=== PATIENT | female | born 1990 | race Asian ===

== ENCOUNTER 2025-03-07 23:13 | Inpatient (IN) | payer OTHER, SELFPAY ==
[2025-03-07 20:19] VITALS: BP 120/76
--- NOTE | 2025-03-07 20:51 | ED.GENMED ---
History of Present Illness
<Tarsha Torres PA-C - Last Filed: 03/08/25 01:44>
General
Chief Complaint: Abdominal Symptoms
Source: patient
Exam Limitations: none
Time Seen by Provider: 03/07/25 20:28
Nursing documentation reviewed up to this point in time: agreed with
History of Present Illness
History of Present Illness:
Patient is a 34-year-old female who presents to the emergency department for evaluation of upper abdominal pain. Patient states that symptoms started 2 days ago after eating fish. She reports upper abdominal pain associated with nausea. Symptoms
initially resolved 2 days ago although after eating earlier this evening pain returned and has been more intense. She describes it as a 'pinching' with radiation into her mid back. She feels nauseous although has not had any episodes of vomiting.
She denies any fever or chills. No dysuria, hematuria, or changes in bowel habits. She denies any chest pain or difficulty breathing however does feel discomfort with deep inspiration.
No history of abdominal surgeries.
Review of Systems
<Tarsha Torres PA-C - Last Filed: 03/08/25 01:44>
Review of Systems
Allergies reviewed?: Yes
All Other Systems: ROS reviewed and negative except as documented in HPI and ROS
Phy Exam
<Tarsha Torres PA-C - Last Filed: 03/08/25 01:44>
Physical Exam
Physical Exam:
Vitals: Patient's vital signs are stable. Afebrile
General: Patient is uncomfortable appearing.
Skin: Warm and dry, no rashes or lesions
Head: Normocephalic, atraumatic
Eyes: Sclera nonicteric.
Throat: Protecting airway
Neck: Normal ROM, no cervical spine tenderness, no meningismus
Cardiac: Regular rate and rhythm, no murmurs.
Pulm: Normal respiratory effort. Lungs clear
Abdomen: Abdomen soft. Moderate tenderness in epigastric region and right upper quadrant. No rebound or guarding. Negative Delarosa sign.
Extremities: No evidence of cyanosis or edema
Neuro: AAOx3. Grossly intact.
Psychiatric: Normal affect.
Course
<Tarsha Torres PA-C - Last Filed: 03/08/25 01:44>
Orders/Labs/Results
Orders:
Orders
03/07/25 20:51
Ketorolac [Toradol] 15 mg IV NOW STA
Ondansetron Injectable [Zofran] 4 mg IV NOW STA
Test Result ONCE
US Abdomen Complete/Upper Urgent
Comment:
Reason For Exam: Epigastric pain
03/07/25 20:53
0.9% Sodium Chloride 1000 ml [Nss] 1,000 ml IV BOLUS
03/07/25 20:57
Electrocardiogram (*1) Urgent
Reason for Study: Abdominal Pain
EKG- Treatment ONCE
03/07/25 21:04
Complete Blood Count/With Diff Urgent
Comprehensive Metabolic Panel Urgent
HCG, Serum Qualitative Screen Urgent
Lipase Urgent
03/07/25 22:56
Admit/Transfer Patient As Directed
Co-Sign Provider:
Level of Care: Inpatient admission
Assign to:: Medical/Surgical
Physician / Group: htay
Diagnosis: acute GS pancreattiis
Reason for Hospitalization: acute GS pancreatitis
Expected length of stay greater than two midnights?: Yes
ELOS- Estimated Length of Stay in days: 3
I certify the patient meets the requirements for IP care: Yes
03/07/25 22:57
Code Status As Directed
Resuscitation Status: Full Code
03/08/25 00:56
Bisacodyl [Dulcolax] 10 mg RECTAL [id number] PRN
Docusate W/Senna [Senokot-S] 1 tablet PO BIDPRN PRN
HYDROmorphone [Dilaudid] 0.5 mg IV Q4HPRN PRN
Ketorolac [Toradol] 10 mg IV Q6HPRN PRN
Lactated Ringers [Lr] 1,000 ml IV 200 mls/hr
Ondansetron Injectable [Zofran] 4 mg IV Q6HPRN PRN
Polyethylene Glycol Powder [Miralax] 17 grams PO DAILYPRN PRN
03/08/25 00:56
Consult Notification Routine
Specialty to Notify: Gastroenterology
GASTROINTESTINAL CONSULT Routine
Consulting Provider: Jose Coawn
Was physician already notified: No
Reason for consult: acute GS pancreattiis
Activity As Directed
Activity Level: With Assistance
Vital Signs As Directed
Frequency: Per unit guidelines
DX Deep Vein Thrombosis Video Routine
03/08/25 Breakfast
NPO
Allow oral meds: Yes
Allow clear liquids: Sips of Clears
NPO with Ice Chips: No
Complete Blood Count/No Diff IN AM
Comprehensive Metabolic Panel IN AM
Lipase IN AM
03/08/25 08:00
Heparin 5,000 units SC Q12
Abnormal Lab Results
03/07/25
21:04
RBC 4.18 L 10^6/uL
(4.20-5.40)
Absolute Monos (auto) 0.8 H 10^3/uL
(0.1-0.6)
Creatinine 0.5 L mg/dL
(0.6-1.0)
Glucose 102 H mg/dl
(70-99)
AST 152 H U/L
(14-36)
ALT 82 H U/L
(0-35)
Lipase > 4000 H* U/L
(23-300)
03/07/25 21:04
03/07/25 21:04
Vital Signs
Initial and Last Documented VS:
Initial Vital Signs
Temp Pulse Resp BP Pulse Ox
98.0 F 96 20 120/76 99
03/07/25 20:19 03/07/25 20:19 03/07/25 20:19 03/07/25 20:19 03/07/25 20:19
Last Documented Vital Signs
Temp Pulse Resp BP Pulse Ox
97.8 F 85 16 122/80 98
03/08/25 01:04 03/08/25 01:04 03/08/25 01:04 03/08/25 01:04 03/08/25 01:04
<Trey Agrawal MD - Last Filed: 03/07/25 22:49>
Orders/Labs/Results
Orders:
Orders
03/07/25 20:51
Ketorolac [Toradol] 15 mg IV NOW STA
Ondansetron Injectable [Zofran] 4 mg IV NOW STA
Test Result ONCE
US Abdomen Complete/Upper Urgent
Comment:
Reason For Exam: Epigastric pain
03/07/25 20:53
0.9% Sodium Chloride 1000 ml [Nss] 1,000 ml IV BOLUS
03/07/25 20:57
Electrocardiogram (*1) Urgent
Reason for Study: Abdominal Pain
EKG- Treatment ONCE
03/07/25 21:04
Complete Blood Count/With Diff Urgent
Comprehensive Metabolic Panel Urgent
HCG, Serum Qualitative Screen Urgent
Lipase Urgent
03/07/25 22:56
Admit/Transfer Patient As Directed
Co-Sign Provider:
Level of Care: Inpatient admission
Assign to:: Medical/Surgical
Physician / Group: htay
Diagnosis: acute GS pancreattiis
Reason for Hospitalization: acute GS pancreatitis
Expected length of stay greater than two midnights?: Yes
ELOS- Estimated Length of Stay in days: 3
I certify the patient meets the requirements for IP care: Yes
03/07/25 22:57
Code Status As Directed
Resuscitation Status: Full Code
03/08/25 00:56
Bisacodyl [Dulcolax] 10 mg RECTAL [id number] PRN
Docusate W/Senna [Senokot-S] 1 tablet PO BIDPRN PRN
HYDROmorphone [Dilaudid] 0.5 mg IV Q4HPRN PRN
Ketorolac [Toradol] 10 mg IV Q6HPRN PRN
Lactated Ringers [Lr] 1,000 ml IV 200 mls/hr
Ondansetron Injectable [Zofran] 4 mg IV Q6HPRN PRN
Polyethylene Glycol Powder [Miralax] 17 grams PO DAILYPRN PRN
03/08/25 00:56
Consult Notification Routine
Specialty to Notify: Gastroenterology
GASTROINTESTINAL CONSULT Routine
Consulting Provider: Jose Cowan
Was physician already notified: No
Reason for consult: acute GS pancreattiis
Activity As Directed
Activity Level: With Assistance
Vital Signs As Directed
Frequency: Per unit guidelines
DX Deep Vein Thrombosis Video Routine
03/08/25 Breakfast
NPO
Allow oral meds: Yes
Allow clear liquids: Sips of Clears
NPO with Ice Chips: No
Complete Blood Count/No Diff IN AM
Comprehensive Metabolic Panel IN AM
Lipase IN AM
03/08/25 08:00
Heparin 5,000 units SC Q12
Abnormal Lab Results
03/07/25
21:04
RBC 4.18 L 10^6/uL
(4.20-5.40)
Absolute Monos (auto) 0.8 H 10^3/uL
(0.1-0.6)
Creatinine 0.5 L mg/dL
(0.6-1.0)
Glucose 102 H mg/dl
(70-99)
AST 152 H U/L
(14-36)
ALT 82 H U/L
(0-35)
Lipase > 4000 H* U/L
(23-300)
03/07/25 21:04
03/07/25 21:04
Vital Signs
Initial and Last Documented VS:
Initial Vital Signs
Temp Pulse Resp BP Pulse Ox
98.0 F 96 20 120/76 99
03/07/25 20:19 03/07/25 20:19 03/07/25 20:19 03/07/25 20:19 03/07/25 20:19
Last Documented Vital Signs
Temp Pulse Resp BP Pulse Ox
97.8 F 85 16 122/80 98
03/08/25 01:04 03/08/25 01:04 03/08/25 01:04 03/08/25 01:04 03/08/25 01:04
<Tarsha Torres PA-C - Last Filed: 03/08/25 01:44>
MDM/Problems Addressed
Differential Diagnosis Includes:
Not limited to: Biliary colic, acute cholecystitis, choledocholithiasis, pancreatitis, gastritis, GERD, etc.
MDM/Problems Addressed:
34-year-old female 2 days of upper abdominal pain radiating to back with associated nausea. Exacerbated with deep inspiration. No fever, vomiting, dysuria, or hematuria. No exertional chest pain. Vital stable. On exam, patient appears
uncomfortable however nontoxic. Abdomen soft with reproducible tenderness in epigastric region and right upper quadrant without rebound or guarding. Negative Delarosa sign. Cardio/pulmonary assessment unremarkable. Differential includes possible
biliary colic, acute cholecystitis, choledocholithiasis, pancreatitis.
ED plan: Will obtain basic labs, lipase, hCG. Will check abdominal ultrasound. Will give IV fluids, treat pain and reassess.
Update: CBC unremarkable. Chemistry reveals transaminitis with AST of 152 and ALT of 82 as well as lipase greater than 4000. Ultrasound shows cholelithiasis without other findings consistent with acute cholecystitis.
On reassessment, patient's pain has improved since arrival to ED however mildly persistent. Clinical picture suggest acute pancreatitis likely secondary to gallstones. Patient will require admission for IV fluids, pain management and further
evaluation. Discussed all findings at length with patient using diesel locomotive engineer. Patient accepted to hospitalist service in stable condition.
Chronic conditions affecting care:
N/A
Acute Exacerbation and/or Progression of Chronic Illness:
N/A
<Tarsha Torres PA-C - Last Filed: 03/08/25 01:44>
*Radiology
Radiology exam reviewed: radiology read reviewed
*Pulse Oximetry
SaO2: 99
Oxygen Mode of Delivery: Room air
Patient hypoxic: no
*EKG
Interpreted by ED Provider?: Yes
EKG Intrepretation Date: 03/09/25
Interpretation: normal
Comparison EKG: no comparison EKG present
Heart Rate: 83
Rate: normal
Rhythm: sinus
Interval: normal interval
QRS Pattern: normal QRS
Ischemia: no ischemia
*Site Operations Manager Interpretation
Rate: Site Operations Manager- N/A
*Critical Care Note
Total Time (30-74mins, 75-104mins- exclusive of procedures): Not Applicable
<Tarsha Torres PA-C - Last Filed: 03/08/25 01:44>
Patient Management
Discussion with other providers: Hospitalist
ED Attending Note
<Tarsha Torres PA-C - Last Filed: 03/08/25 01:44>
-
Portions of this chart may have been created with voice recognition software.� Occasional wrong word or��sound alike� substitutions may have occurred due to the inherent limitations of voice recognition software.
<Trey Agrawal MD - Last Filed: 03/07/25 22:49>
ED Attending Note
Patient seen and examined by attending physician: Yes
ED Attending Note:
I have seen and evaluated the patient with a [id number] encounter. I have spoken to the advance practicer provider and involved in the medical history, the physical exam, medical decision making.
Evaluation and management service: agree unless noted differently below.
Results interpretation: agree unless noted differently below.
Focused HPI: 34-year-old female with no reported chronic medical issues presents to the ER for evaluation of abdominal pain. Patient reports postprandial pain for the past 3 to 4 days but symptoms have been constant since eating this evening. She
reports pain in the upper abdomen radiates towards the right side in the back. Associate with nausea and vomiting. No diarrhea or constipation. No urinary symptoms. She denies similar symptoms in the past. Denies prior surgical history.
Physical exam: Awake and alert and appears mildly uncomfortable. Vital signs normal. Abdomen soft, tender to palpation in the epigastrium with voluntary guarding.
Medical Decision Makin-year-old female presents with abdominal pain postprandial for the past few days constant since this evening. Vitals and exam as above. Labs were significant for markedly elevated lipase greater than 4000. Normal T.
bili, AST and ALT marginally elevated. Upper abdominal ultrasound does show gallstones overall clinical picture most consistent with gallstone pancreatitis. Pain control, fluids, admit for continued management.
Discharge Plan
Departure
Patient Disposition: Admit
Date of Disposition: 03/07/25
Time of Disposition: 22:35
Presentation/result/management discussed w/ accepting MD/DO: Hospitalist
Discharge Problem:
Gallstone pancreatitis
Interventions
Interventions:
*Risk Screen - Suicide Last Done: 03/07/25 20:19
*General Assessment Last Done: 03/07/25 20:19
*Neglect/Abuse Screening Last Done: 03/07/25 20:19
*ED- Fall Risk Assessment Last Done: 03/08/25 00:52
*ED COVID-19 Vaccine History Last Done: 03/07/25 20:19
*ED Influenza Vaccine History Last Done: 03/07/25 20:19
*Nursing Disposition Last Done: 03/08/25 00:52
GS-Pwpqby-Fsvpmmbgwx Assessment Last Done: 03/07/25 21:18
Discharge Date and Time
Discharge Date/Time: 03/08/25 00:54
[2025-03-07] MEDS: ZOFRAN 4 MG IV (21:11)
[2025-03-07] MEDS: TORADOL 15 MG IV (21:11)
[2025-03-07] MEDS: NSS 1000 IV (21:11)
[2025-03-07 21:22] LABS: Hematocrit 37.2 % (37.0-47.0); Hemoglobin 12.3 g/dL (12.0-16.0); Mean Corp Hgb Conc. 33.1 g/dL (33.0-37.0); Mean Corpuscular Volume 89.0 fL (81.0-99.0); Nucleated Red Blood Cells % 0 %; Platelet Count 280 10^3/uL (130-400); Red Cell Dist. Width 12.3 % (11.5-14.5)
[2025-03-07 21:46] LABS: HCG, Serum Qualitative Screen Negative
[2025-03-07 21:51] LABS: ALT (SGPT) 82 U/L (0-35); AST (SGOT) 152 U/L (14-36); Albumin 4.4 g/dl (3.5-5.0); Alkaline Phosphatase 117 U/L (38-126); Blood Urea Nitrogen 12 mg/dl (7-17); Calcium 9.4 mg/dl (8.4-10.2); Carbon Dioxide 26 mmol/L (22-30); Chloride 105 mmol/L (98-107); Glucose 102 mg/dl (70-99); Potassium 3.8 mmol/L (3.5-5.1); Sodium 138 mmol/L (135-145); Total Protein 7.2 g/dl (6.3-8.2); eGFR > 60.00
[2025-03-07 22:08] LABS: Lipase > 4000 U/L (23-300)
[2025-03-07 22:31] VITALS: BP 115/84
--- NOTE | 2025-03-07 22:46 | HPS.HSE ---
Family Physician
-
Family Physician: NOT KNOW UNKNOWN - PT DOES
Chief Complaint
-
epigastric abdominal pain and nausea
History of Present Illness
34F Estonian speaking, 8th grader son is Romansh speaker pw 2 days HX epigastric abdominal pain and nausea, worse after eating.
Medical History
Past Medical History
Past Medical History: Reports None
Past Surgical History: Reports None
Social History
Tobacco: Non-smoker
Alcohol: None
Family History
Family History: Not pertinent
Allergies / Home Medications
Allergies reflects when Allergies were last updated in [facility].
Home Medications with original date entered in [facility]
Allergy/Medication List:
not available
If medication reconciliation has not been performed, why?: Medication List N/A
Review of Systems
-
Constitutional: Reports No Symptoms
EENT: Reports No Symptoms
Respiratory: Reports No Symptoms
Cardiac: Reports No Symptoms
Abdomen/GI: Reports See HPI, Abdominal Pain, Nausea and Vomiting
: Reports No Symptoms
Musculoskeletal: Reports No Symptoms
Skin: Reports No Symptoms
Neurological: Reports No Symptoms
Endocrine: Reports No Symptoms
Hematologic/Lymphatic: Reports No Symptoms
Psych: Reports No Symptoms
Physical Exam
Vital Signs
Vital Signs
Temp Pulse Resp BP Pulse Ox
98.0 F 79 18 115/84 100
03/07/25 20:19 03/07/25 22:31 03/07/25 22:31 03/07/25 22:31 03/07/25 22:31
Physical Exam
General: Well Developed, Well Nourished and No Apparent Distress
HEENT: NormoCephalic, Moist mucous membranes and Atraumatic
Respiratory: Clear
Cardiac: S1/S2 and Regular Rhythm; No Murmur or Rub
Rectal: Deferred by Provider
Musculoskeletal: No Clubbing, No Cyanosis and No Edema
Skin: No Rash
Neuro: Nonfocal/grossly intact
Laboratory Results
-
03/07/25 21:04
03/07/25 21:04
Laboratory Results
Total Bilirubin 0.4 mg/dl (0.2-1.3) 03/07/25 21:04
AST 152 U/L (14-36) H 03/07/25 21:04
ALT 82 U/L (0-35) H 03/07/25 21:04
Alkaline Phosphatase 117 U/L (38-126) 03/07/25 21:04
Lipase > 4000 U/L (23-300) H* 03/07/25 21:04
Data Reviewed
-
Ultrasound: Report Reviewed by me
Medical Tests (Nuc Med, Echo, EKG etc): Report Reviewed by me
Lab Data: Labs Reviewed by me
Impression/Plan
-
Vital Signs
Temp Pulse Resp BP Pulse Ox
98.0 F 79 18 115/84 100
03/07/25 20:19 03/07/25 22:31 03/07/25 22:31 03/07/25 22:31 03/07/25 22:31
03/07/25
21:04
Creatinine 0.5 L
eGFR > 60.00
Calcium 9.4
Total Bilirubin 0.4
AST 152 H
ALT 82 H
Alkaline Phosphatase 117
Lipase > 4000 H*
HCG, Qual Negative
EKG
NORMAL SINUS RHYTHM
NORMAL ECG
NO PREVIOUS ECGS AVAILABLE
US Abdomen Complete/Upper*
1. Cholelithiasis without sonographic evidence for acute cholecystitis.
NO PRIOR hospitalist admission:
ASSESSMENT & PLAN
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
Acute pancreatitis suspect due to GS
- Lipase > 4000
- Transaminase
- No US evidence of AC
- NEG HCG
- IVF switch to IV LR 200/H
- NPO except ice chips
- Trend Lipase and LFTS
- Routine GI consult for AM
DVT Px: SCD
Full code
IP MS
[2025-03-08 01:04] VITALS: BP 122/80; BMI 27.4
[2025-03-08] MEDS: LR 1000 IV ×4 (01:15→18:18)
--- NOTE | 2025-03-08 02:24 | PTCARENOTE ---
Receive pt from ER. Pt alert oriented X3, calm, in no distress. Pt assist X1 to her bed, steady gate. Pt oriented to the room, call kidd within reach. Pt denies pain at this time. VSS (T=97.8, HR=85, RR=16, UZ=676/80, SpO2=98% on RA). Pt speaks
Azeri language. Communication with pt was via missile facilities repairer (ID: [id number]). IVFs infusing as per order. Will continue to monitor the pt.
[2025-03-08 07:30] VITALS: BP 95/59
--- NOTE | 2025-03-08 08:17 | W.PN.HOSP.TC ---
Today's Communication/Plan
-
patient edematous and pain much subsided - decrease IVF
GenSx consult
CLD
Labs in AM
Assessment / Plan
Assessment / Plan
34yo F with no PMHx came with 2 days of postprandial pain found pancreatitis, most likely /2 gallstones
A/P:
#Acute gallstone pancreatitis
#Transaminitis
denied alcohol
Ca WNL
triglicerides pending
advance diet as tolerated
GI consult
CHeck hepatitis panel
GEnSx consult for cholecystectomy timing
DVT ppx lovenox
Full code
I have spent at least 51min reviewing chart, test results, communication with consultants and providing direct patient care
Anticipated Discharge: 24 - 48 hours
Subjective/Interval History
-
Date of Service: March 08, 2025
Objective Data
-
Labs:
Laboratory Results
03/07/25 03/08/25
21:04 06:00
WBC 10.5 Pending
Hgb 12.3 Pending
Hct 37.2 Pending
Plt Count 280 Pending
Sodium 138 Pending
Potassium 3.8 Pending
Chloride 105 Pending
Carbon Dioxide 26 Pending
BUN 12 Pending
Creatinine 0.5 L Pending
Glucose 102 H Pending
Calcium 9.4 Pending
Total Bilirubin 0.4 Pending
AST 152 H Pending
ALT 82 H Pending
Alkaline Phosphatase 117 Pending
Vital Signs:
Vital Signs
Temp Pulse Resp BP Pulse Ox
97.8 F 85 16 122/80 98
03/08/25 01:04 03/08/25 01:04 03/08/25 01:04 03/08/25 01:04 03/08/25 01:19
Review of Systems
-
History Source: Patient
All other systems: Reviewed and negative
Physical Exam
-
General: No Apparent Distress and Comfortable
HEENT: Normocephalic
Respiratory: Clear to Auscultation
Cardiac: Regular Rhythm
GI: Soft, Nondistended and Tender (mild diffuse)
Musculoskeletal: No Clubbing, No Cyanosis, Edema, Right Upper Extrem and Edema, Left Upper Extrem
Neuro: Awake, Alert and Oriented
Psych: Calm
[2025-03-08] MEDS: HEPARIN 5000 UNITS SC ×2 (08:39→20:25)
[2025-03-08 09:17] LABS: Hematocrit 33.9 % (37.0-47.0); Hemoglobin 11.4 g/dL (12.0-16.0); Mean Corp Hgb Conc. 33.6 g/dL (33.0-37.0); Mean Corpuscular Volume 90.2 fL (81.0-99.0); Platelet Count 258 10^3/uL (130-400); Red Cell Dist. Width 12.4 % (11.5-14.5)
[2025-03-08 09:41] LABS: HDL Cholesterol 47 mg/dl; LDL Cholesterol, Calculated 108 mg/dl; Very Low Density Lipoprotein 17 mg/dl (0-30)
[2025-03-08 09:50] LABS: ALT (SGPT) 121 U/L (0-35); AST (SGOT) 102 U/L (14-36); Albumin 3.5 g/dl (3.5-5.0); Alkaline Phosphatase 109 U/L (38-126); Blood Urea Nitrogen 8 mg/dl (7-17); Calcium 8.9 mg/dl (8.4-10.2); Carbon Dioxide 25 mmol/L (22-30); Chloride 110 mmol/L (98-107); Estimated Creatinine Clearance > 125 ml/min; Glucose 77 mg/dl (70-99); Lipase 223 U/L (23-300); Potassium 4.1 mmol/L (3.5-5.1); Sodium 139 mmol/L (135-145); Total Protein 6.1 g/dl (6.3-8.2); eGFR > 60.00
--- NOTE | 2025-03-08 11:09 | CON.GS ---
Consultation
-
Date/Time Consultation Performed: 03/08/2025 10:10 AM
Performing Provider: Lisa
Reason for Consultation: Gallstone pancreatitis
Medical History
-
Chief Complaint: Abdominal pain
History of Present Illness:
Patient is a 34-year-old [place] speaking female who presented to the emergency department for evaluation yesterday secondary to the acute onset of abdominal pain.
History obtained utilizing language line
She reports a previous history of gallstone attack years ago which was treated medically she states that she was previously on a medication but she is not sure what it is. She has not had any recurrent symptoms since.
Patient was in her usual baseline state of health until yesterday when she developed the acute onset of epigastric abdominal pain with nausea. Pain is postprandial in nature. No nausea. No vomiting. Her symptoms have resolved today. Her bowels
have been moving regularly recently.
Past Medical History
Past Medical History: None (Denies any significant active or past medical history)
Past Surgical History: None
Social History
Living: With Family
Family History
Family History: Reviewed & Noncontributory
Allergies / Home Medications
Allergy/AdvReac Type Severity Reaction Status Date / Time
No Known Allergies Allergy Unverified 03/07/25 20:19
Review of Systems
-
History Source: Patient
All other systems: Negative unless noted
A 10 point review of systems was completed, and was negative except as per HPI.
Physical Exam
Vital Signs
Temp Pulse Resp BP Pulse Ox
98.9 F 69 16 95/59 98
03/08/25 07:30 03/08/25 07:30 03/08/25 07:30 03/08/25 07:30 03/08/25 07:30
03/07/25 03/08/25 03/09/25
06:59 06:59 06:59
Actual Weight 76.374 kg
Body Mass Index (BMI) 27.4
Lab Results
03/08/25 08:43
03/08/25 08:43
WBC 6.2 10^3/uL (4.8-10.8) 03/08/25 08:43
Hgb 11.4 g/dL (12.0-16.0) L 03/08/25 08:43
Hct 33.9 % (37.0-47.0) L 03/08/25 08:43
Plt Count 258 10^3/uL (130-400) 03/08/25 08:43
Abs Immat Gran (auto) 0.0 10^3/uL (0-0.05) 03/07/25 21:04
Neutrophils % 61.0 % (42.2-75.2) 03/07/25 21:04
Physical Exam
General: Well Developed, Well Nourished, No Apparent Distress and Comfortable
HEENT: Normocephalic, Anicteric and Moist Mucous Membranes
Respiratory: Non Labored Respirations
GI: Soft, Non Distended and Tender (Very slight epigastric tenderness. No rebound rigidity or guarding)
Neuro: AO x 3
Psych: Calm
Data Reviewed
-
Ultrasound: Image Personally Visualized and interpreted (Gallbladder visualized with numerous stones. No wall thickening or pericholecystic edema. No biliary ductal dilation. Common bile duct 5 mm.)
Labs: Labs Reviewed by me (CBC unremarkable. Mildly elevated AST and ALT. Lipase initially greater than 4000, currently 223. Bilirubin normal.)
Assessment / Plan
-
Assessment: 34-year-old female with probable gallstone mediated acute pancreatitis.
Via translation line discussed with patient indications for cholecystectomy. By history she has a previous episode of biliary colic as well and known gallstones.
We discussed the anticipated operative procedure of a laparoscopic cholecystectomy with cholangiogram in detail including the operative technique, alternative treatment options, benefits and risks such as bleeding, infectious and wound related
complications as well as iatrogenic injury to surrounding viscera.
Specifically advised that nonoperative/medical management alone would likely have a 40% chance of future gallstone pancreatitis recurrence and higher risk for symptomatic cholelithiasis.
Plan: After our discussions patient advised that she had no additional specific questions.
At this point she remains indeterminate on if she would like to pursue cholecystectomy. I confirmed with her that there are no additional specific questions that I can help her with in making this decision.
We will tentatively add her onto the OR schedule 03/09/2025 in case patient is comfortable proceeding with cholecystectomy at time of hospitalization
Otherwise continue current supportive care resolving acute pancreatitis
[2025-03-08 11:47] VITALS: BP 104/69
[2025-03-08 13:11] LABS: Hepatitis B Surface Antigen Negative (Negative)
[2025-03-08 13:29] LABS: Hepatitis C Antibody Negative (Negative)
--- NOTE | 2025-03-08 15:26 | CM ---
CM met with pt at bedside using [facility] cardiac tech [employer] ID # [id number].
Prior to admission, pt independent. No DME. + Color Consultant. Does not work.
Confirmed insurance on face sheet. Last saw PCP 4 months ago, Ashley Rowe on [facility]. Unable to spell the name.
Pharmacy is [facility] on [facility].
Anticipated discharge dispo home no needs.
--- NOTE | 2025-03-08 15:28 | CON.GI ---
Consultation
-
Date/Time Consultation Requested: 03/08/2025
Date/Time Consultation Performed: 03/08/2025
Performing Provider: Jose Cowan
Reason for Consultation: acute pancreatitis
Medical History
Chief Complaint / HPI
Chief Complaint: acute pancreatitis
History of Present Illness:
34 year old [place] speaking female who p/w 2 days h/o epigastric pain associated with nausea, worse after eating. Lipase > 4000, consistent with acute pancreatitis. No prior episode. Denies alcohol. US showed cholelithiasis. On CLD, pain is
improved.
Past Medical History
Past Medical History: None
Past Surgical History: Other
Social History
Tobacco: Non-Smoker
Alcohol: None
Drug: None
Allergies / Home Medications
Allergy/AdvReac Type Severity Reaction Status Date / Time
No Known Allergies Allergy Unverified 03/07/25 20:19
Review of Systems
Vital Signs
Temp Pulse Resp BP Pulse Ox
98.9 F 75 16 104/69 98
03/08/25 07:30 03/08/25 11:47 03/08/25 07:30 03/08/25 11:47 03/08/25 09:00
Physical Exam
Exam
General: Well Developed and Well Nourished
HEENT: Normocephalic
Respiratory: Clear
Cardiac: S1/S2
GI: Soft, Non Tender, Non Distended and Normal Bowel Sounds
Results
WBC 6.2 10^3/uL (4.8-10.8) 03/08/25 08:43
Hgb 11.4 g/dL (12.0-16.0) L 03/08/25 08:43
Hct 33.9 % (37.0-47.0) L 03/08/25 08:43
MCV 90.2 fL (81.0-99.0) 03/08/25 08:43
Plt Count 258 10^3/uL (130-400) 03/08/25 08:43
Absolute Neuts (auto) 6.4 10^3/uL (1.4-6.5) 03/07/25 21:04
Sodium 139 mmol/L (135-145) 03/08/25 08:43
Potassium 4.1 mmol/L (3.5-5.1) 03/08/25 08:43
Chloride 110 mmol/L (98-107) H 03/08/25 08:43
Carbon Dioxide 25 mmol/L (22-30) 03/08/25 08:43
BUN 8 mg/dl (7-17) 03/08/25 08:43
Creatinine 0.5 mg/dL (0.6-1.0) L 03/08/25 08:43
Calcium 8.9 mg/dl (8.4-10.2) 03/08/25 08:43
Total Bilirubin 0.7 mg/dl (0.2-1.3) 03/08/25 08:43
AST 102 U/L (14-36) H 03/08/25 08:43
ALT 121 U/L (0-35) H 03/08/25 08:43
Alkaline Phosphatase 109 U/L (38-126) 03/08/25 08:43
Lipase 223 U/L (23-300) 03/08/25 08:43
Hep Bs Antibody Positive 03/08/25 08:43
Hep B Core Total Ab Reactive (Negative) 03/08/25 08:43
Hepatitis C Antibody Negative (Negative) 03/08/25 08:43
Diagnostic Image Results:
Prior GI Procedures:
EGD:
Colonoscopy:
Assessment / Plan
-
34 year old [place] speaking female who p/w 2 days h/o epigastric pain associated with nausea, worse after eating.
Impression / Rec:
1. Gallstone pancreatitis - lipase > 4000, US showed cholelithiasis, and she denies alcohol. Tolerating CLD currently, pain has improved. Mild transaminase elevations. CBD ~5 mm on US. Minimal / No concern for choledocholithiasis. Mx
conservatively, early enteral feeding, can back off on IVF at this point. Surgery to determine choelcystectomy timing. GI s/o, call w/ questions.
Total Time Spent with Patient (in minutes): 55
-
-
Thank you for consultation and allowing me to participate in the patient's care. Please call the supervisor inspection department GI physician during the after hours with any questions or concerns.
[2025-03-08 15:30] VITALS: BP 100/63
[2025-03-08] MEDS: MOTRIN 200 MG PO (18:44)
[2025-03-08 23:42] VITALS: BP 109/70
[2025-03-09] VITALS (8 sets, daily range): BP systolic 97–119; BP diastolic 55–83
[2025-03-09] MEDS: LR 1000 IV ×2 (01:14→08:48)
[2025-03-09 08:44] LABS: Hematocrit 35.7 % (37.0-47.0); Hemoglobin 11.2 g/dL (12.0-16.0); Mean Corp Hgb Conc. 31.4 g/dL (33.0-37.0); Mean Corpuscular Volume 94.2 fL (81.0-99.0); Nucleated Red Blood Cells % 0 %; Platelet Count 252 10^3/uL (130-400); Red Cell Dist. Width 12.5 % (11.5-14.5)
[2025-03-09] MEDS: HEPARIN 5000 UNITS SC ×2 (08:48→21:16)
[2025-03-09 09:09] LABS: ALT (SGPT) 84 U/L (0-35); AST (SGOT) 47 U/L (14-36); Albumin 3.6 g/dl (3.5-5.0); Alkaline Phosphatase 96 U/L (38-126); Blood Urea Nitrogen 5 mg/dl (7-17); Calcium 9.1 mg/dl (8.4-10.2); Carbon Dioxide 27 mmol/L (22-30); Chloride 107 mmol/L (98-107); Estimated Creatinine Clearance > 125 ml/min; Glucose 73 mg/dl (70-99); Potassium 4.1 mmol/L (3.5-5.1); Sodium 138 mmol/L (135-145); Total Protein 6.2 g/dl (6.3-8.2); eGFR > 60.00
--- NOTE | 2025-03-09 10:38 | W.PN.HOSP.TC ---
Today's Communication/Plan
-
for cholecystectomy
Assessment / Plan
Assessment / Plan
34yo F with no PMHx came with 2 days of postprandial pain found pancreatitis, most likely /2 gallstones
A/P:
#Acute gallstone pancreatitis
#Transaminitis
denied alcohol
Ca WNL
triglicerides not significantly elevated
advance diet as tolerated
GI consult
hepatitis panel neg
GEnSx consult for cholecystectomy - pending surgery
DVT ppx lovenox
Full code
I have spent at least 51min reviewing chart, test results, communication with consultants and providing direct patient care
Anticipated Discharge: 24 - 48 hours
Subjective/Interval History
-
Date of Service: March 09, 2025
Objective Data
-
Labs:
Laboratory Results
03/09/25
07:36
WBC 5.7
Hgb 11.2 L
Hct 35.7 L
Plt Count 252
Sodium 138
Potassium 4.1
Chloride 107
Carbon Dioxide 27
BUN 5 L
Creatinine 0.6
Glucose 73
Calcium 9.1
Total Bilirubin 0.9
AST 47 H
ALT 84 H
Alkaline Phosphatase 96
Vital Signs:
Vital Signs
Temp Pulse Resp BP Pulse Ox
98 F 77 16 97/62 98
03/09/25 07:03 03/09/25 07:03 03/09/25 07:03 03/09/25 07:03 03/09/25 07:03
I&O
03/08/25 03/09/25 03/10/25
06:59 06:59 06:59
Intake Total 3970 / 3970
Balance 3970 / 3970
Review of Systems
-
History Source: Patient
All other systems: Reviewed and negative
Physical Exam
-
General: No Apparent Distress
HEENT: Normocephalic
Respiratory: Clear to Auscultation
GI: Soft, Nontender and Nondistended
Musculoskeletal: No Clubbing, No Cyanosis and No Edema
Neuro: Awake, Alert, Oriented and AO x 3
Psych: Calm
--- NOTE | 2025-03-09 11:03 | W.SUR.PREOP ---
Pre-Operative Surgical Note
-
I have examined this patient prior to the performance of the scheduled procedure.
The patient's condition is unchanged from the time of the current History and
Physical and the patient is able to undergo the scheduled procedure.
--- NOTE | 2025-03-09 14:05 | W.IMMPOSTOP ---
Surgical Immed Post Op Note
-
Primary Surgeon: Lester Peralta MD
Assisting Surgeon: None
Pre-op Diagnosis: Gallstone pancreatitis
Post-op Diagnosis: Same
Procedure Performed: Laparoscopic cholecystectomy
Anesthesia Type: General
Specimen / Cultures: Gallbladder and contents
Estimated Blood Loss: 7 cc
Complications: None
Operative Findings: Fairly normal-appearing gallbladder, minimal inflammation. Critical view of safety obtained prior to a cholangiogram which demonstrated normal biliary anatomy and no filling defects. Duct ligated with a clip followed by 0 PDS
Endoloop.
POST OP PLAN:
Imaging: None
Labs: Routine AM
Diet: Advance to Regular as tolerated
Analgesia: Tylenol 650mg q6 Janette, Dilaudid 0.5mg q2h PRN
Neuro/vascular checks: Per unit protocol
AC/AP: Hold Therapeutic AC, Ok for DVT PPx
Activity: Ad Toya
Wound/Incisions/Drains: Routine
Abx: None
Dispo: RNF, anticipate dispo home today versus tomorrow pending clinical course. DC instructions updated.
[2025-03-09] MEDS: DILAUDID 0.5 MG IV (15:40)
--- NOTE | 2025-03-09 17:23 | OR.RPT ---
Operative Report
Operative Report
Patient Name: Sophie Morfin
: 1990
Date of Operation: 03/09/2025
Preoperative Diagnosis: Gallstone pancreatitis
Postoperative Diagnosis: Same
Procedure(s):
Laparoscopic Cholecystectomy with Cholangiogram
Surgeon(s):
Dr. Peralta
Disk Grinder(s):
HAYLEY Richter
HILARIO Earl
Anesthesia: General
Estimated Blood Loss: [7] cc
Urine Output: None
Drains/Lines/Implants: [None]
Specimens:
1. Gallbladder and contents
HPI/Surgical Indications:
This is a 34-year-old female who presented with epigastric abdominal pain. Exam, labs and imaging are consistent with acute pancreatitis. Risks/Benefits/Alternatives were discussed at length, and the patient consented to proceed with surgery.
Operative Findings: Fairly normal-appearing gallbladder, minimal inflammation. Critical view of safety obtained prior to a cholangiogram which demonstrated normal biliary anatomy and no filling defects. Duct ligated with a clip followed by 0 PDS
Endoloop.
Procedure Description:
The patient was brought to the Operating Room and placed in the supine position with one arm tucked. Following uneventful induction of general endotracheal anesthesia, an orogastric tube was placed. The abdomen was prepped and draped in the usual
sterile fashion. A timeout was performed confirming the procedure, consent, and that IV antibiotics were infused and sequential compression devices were confirmed to be on. The abdomen was entered using a left subcostal Veress technique which
required a single pass followed by a 5 mm right upper quadrant Optiview trocar. Pneumoperitoneum to 15 mmHg pressure was obtained without difficulty and we confirmed that no injury had occurred during our entry. The patient was positioned in
reverse Trendelenberg and rotated with the right side up slightly. Two 5 mm trocars were then placed along the right subcostal margin, followed by a 12 mm port in the epigastrium. The gallbladder appeared fairly normal but somewhat distended. A
locking grasping forceps was placed on the fundus of the gallbladder where it was then retracted cephalad and to the right. Using appropriate grasping instruments, the peritoneum overlying the triangle of Calot was incised and extended superiorly on
both the anterior and posterior gallbladder pitts. The lower third of the gallbladder was dissected off the cystic plate. The cystic triangle was dissected until 2 and only 2 structures were seen entering the gallbladder, thus a critical view of
safety was achieved. The cystic artery was clipped with 5 mm titanium clips and divided. The cystic duct was clipped high on the gallbladder. A ductotomy was made and a cholangiocatheter on an Gallardo clamp was inserted into the cystic duct. A C-arm
was draped and brought into the field. An intra-operative cholangiogram was performed and was noted to have:
No filling defects in the biliary tree
No significant biliary dilation
Brisk flow of contrast into the duodenum
Normal biliary anatomy
The catheter was then removed and the cystic duct was controlled with a clip followed by 0 PDS Endoloop. After ensuring both the artery and duct were divided, the gallbladder was freed from the liver using electrocautery. There was some spillage
of bile from our ductotomy, but no spillage of stones. The gallbladder bed was inspected and excellent hemostasis was obtained. The gallbladder was extracted through the 12 mm trocar site using an endocatch bag without dilating the port site. The
abdomen was again irrigated and excellent hemostasis was assured. All remaining trocars were then removed and the pneumoperitoneum was evacuated. The 12 mm trocar site was closed using 0 PDS suture. All trocar sites were closed at the skin level
using 4-0 Monocryl followed by Dermabond. Overall, the patient tolerated the procedure well and was taken to the Recovery Room postoperatively in stable condition.
I was the attending physician and performed the procedure with assistance of the RESIDENT HALL DIRECTOR and PA student above. They were required due to the complexity of the procedure. During the procedure they assisted with port placement, gallbladder retraction,
holding camera and skin closure. I was present for all portions of the case, excluding skin closure.
Lester Peralta MD
[2025-03-09] MEDS: MOTRIN 400 MG PO (19:26)
[2025-03-09] MEDS: DILAUDID 0.25 MG IV (21:15)
[2025-03-10] VITALS: BP 103/64
[2025-03-10 03:30] VITALS: BP 104/65
[2025-03-10 07:15] LABS: Hematocrit 36.1 % (37.0-47.0); Hemoglobin 12.1 g/dL (12.0-16.0); Mean Corp Hgb Conc. 33.5 g/dL (33.0-37.0); Mean Corpuscular Volume 89.6 fL (81.0-99.0); Nucleated Red Blood Cells % 0 %; Platelet Count 291 10^3/uL (130-400); Red Cell Dist. Width 12.2 % (11.5-14.5)
[2025-03-10] MEDS: MOTRIN 400 MG PO (07:16)
[2025-03-10 07:30] VITALS: BP 116/72
[2025-03-10 07:38] LABS: ALT (SGPT) 73 U/L (0-35); AST (SGOT) 40 U/L (14-36); Albumin 4.1 g/dl (3.5-5.0); Alkaline Phosphatase 94 U/L (38-126); Blood Urea Nitrogen 8 mg/dl (7-17); Calcium 9.3 mg/dl (8.4-10.2); Carbon Dioxide 23 mmol/L (22-30); Chloride 106 mmol/L (98-107); Estimated Creatinine Clearance > 125 ml/min; Glucose 80 mg/dl (70-99); Potassium 4.2 mmol/L (3.5-5.1); Sodium 136 mmol/L (135-145); Total Protein 6.8 g/dl (6.3-8.2); eGFR > 60.00
[2025-03-10] MEDS: HEPARIN 5000 UNITS SC ×2 (09:10→21:08)
--- NOTE | 2025-03-10 11:11 | W.PN.GS2 ---
Today's Communication / Plan
-
-- Clears, ADAT to LFD
-- Pain control: Tylenol, Toradol, Tramadol
-- OOB/ambulate
-- Dispo pending dietary tolerance and pain control
Assessment / Plan
-
Patient is a 34 yo F POD#1 s/p laparoscopic cholecystectomy with IOC
AVSS
Labs notable for normal WBC, stable Hb, normal electrolytes and renal function, normal bilirubin, mild persistent elevation in LFTs (trending down), normal ALP
Issues with postoperative pain likely MSK. Patient previously refusing narcotic pain medications and on limited nonnarcotic options. Plan to adjust pain medications throughout the day. If tolerates clears can be advanced to a low-fat diet. Okay
for discharge from surgical perspective when tolerating a diet and pain controlled with ambulation.
-- Clears, ADAT to LFD
-- Pain control: Tylenol, Toradol, Tramadol
-- IVF until tolerating PO then can HLIV
-- OOB/ambulate
-- DVT: SQH
-- Dispo pending dietary tolerance and pain control
Subjective Data
-
Date of Service: March 10, 2025
Reports epigastric pain and discomfort particularly with movement. No nausea or vomiting. Passing flatus, no BM. Afebrile.
Objective Data
-
Intake and Output
03/09/25 03/10/25 03/11/25
06:59 06:59 06:59
Intake Total 3970 / 3970 125 / 125
Output Total 750 / 750
Balance 3970 / 3970 -625 / -625
Intake:
Oral fluids 420 / 420
IV fluids (Total) 3550 / 3550 125 / 125
Normosol 125 / 125
Output:
Urine, Voided 750 / 750
Other:
Number of approximated MODERATE 2 3
amounts of urine
Number of approximated LARGE 2
amounts of urine
Vital Signs
Temp Pulse Resp BP Pulse Ox
98.3 F 79 18 116/72 96
03/10/25 07:30 03/10/25 07:30 03/10/25 07:30 03/10/25 07:30 03/10/25 07:30
Lab Results
03/10/25 06:46
03/10/25 06:46
Calcium 9.3 mg/dl (8.4-10.2) 03/10/25 06:46
Total Bilirubin 0.9 mg/dl (0.2-1.3) 03/10/25 06:46
AST 40 U/L (14-36) H 03/10/25 06:46
ALT 73 U/L (0-35) H 03/10/25 06:46
Alkaline Phosphatase 94 U/L (38-126) 03/10/25 06:46
Total Protein 6.8 g/dl (6.3-8.2) 03/10/25 06:46
Albumin 4.1 g/dl (3.5-5.0) 03/10/25 06:46
Physical Exam
-
Gen: NAD
Abd: soft, tender overlying epigastric incision, ND, non-peritoneal, incisions c/d/i - no erythema, ecchymosis or drainage
Patient has a sethi catheter: No
Patient has a central line: No
[2025-03-10 11:22] LABS: Lipase 69 U/L (23-300)
--- NOTE | 2025-03-10 11:35 | W.PN.HOSP.TC ---
Today's Communication/Plan
-
IVF
CLD
Pain mgmt
follow labs in AM
Assessment / Plan
Assessment / Plan
34yo F with no PMHx came with 2 days of postprandial pain found pancreatitis, most likely /2 gallstones. S/P cholecystectomy on 03/09/25 developed worsened abd pain next day
A/P:
#Acute gallstone pancreatitis
#Transaminitis
denied alcohol
Ca WNL
triglicerides not significantly elevated
advance diet as tolerated
GI consult
hepatitis panel neg
GEnSx consult s/p cholecystectomy
DVT ppx lovenox
Full code
I have spent at least 51min reviewing chart, test results, communication with consultants and providing direct patient care
Anticipated Discharge: 24 - 48 hours
Subjective/Interval History
-
Date of Service: March 10, 2025
Objective Data
-
Labs:
Laboratory Results
03/10/25
06:46
WBC 10.5
Hgb 12.1
Hct 36.1 L
Plt Count 291
Sodium 136
Potassium 4.2
Chloride 106
Carbon Dioxide 23
BUN 8
Creatinine 0.5 L
Glucose 80
Calcium 9.3
Total Bilirubin 0.9
AST 40 H
ALT 73 H
Alkaline Phosphatase 94
Vital Signs:
Vital Signs
Temp Pulse Resp BP Pulse Ox
98.3 F 79 18 116/72 96
03/10/25 07:30 03/10/25 07:30 03/10/25 07:30 03/10/25 07:30 03/10/25 07:30
I&O
03/09/25 03/10/25 03/11/25
06:59 06:59 06:59
Intake Total 3970 / 3970 125 / 125
Output Total 750 / 750
Balance 3970 / 3970 -625 / -625
Review of Systems
-
History Source: Patient
All other systems: Reviewed and negative
Abdomen/GI: Reports Abdominal Pain
Physical Exam
-
General: No Apparent Distress
HEENT: Normocephalic
Respiratory: Clear to Auscultation
GI: Soft, Nondistended and Tender (epigastric)
Musculoskeletal: No Clubbing, No Cyanosis and No Edema
Psych: Calm
[2025-03-10] MEDS: TYLENOL 650 MG PO (11:43)
[2025-03-10] MEDS: ULTRAM 25 MG PO (11:43)
[2025-03-10] MEDS: LR 1000 IV ×2 (11:44→23:30)
[2025-03-10 15:07] VITALS: BP 112/68
--- NOTE | 2025-03-10 16:59 | CM ---
Pt without pain at time of visit. She anticipates being discharged tomorrow.
Plan: DC home with no needs
[2025-03-10] MEDS: TYLENOL PO ×3 (17:07→23:35)
[2025-03-10 23:00] VITALS: BP 120/76
[2025-03-11] MEDS: TYLENOL 650 MG PO ×2 (02:21→10:27)
[2025-03-11] MEDS: HEPARIN 5000 UNITS SC (07:43)
[2025-03-11] MEDS: TYLENOL PO (07:45)
[2025-03-11 08:12] VITALS: BP 110/73
--- NOTE | 2025-03-11 08:38 | W.PN.GS2 ---
Today's Communication / Plan
-
DC
Assessment / Plan
-
Patient is a 34 yo F POD#2 s/p laparoscopic cholecystectomy with IOC
AVSS
Labs notable for normal WBC, stable Hb, normal electrolytes and renal function, normal bilirubin, mild persistent elevation in LFTs (trending down), normal ALP
Issues with postoperative pain likely MSK. Patient previously refusing narcotic pain medications and on limited nonnarcotic options. Plan to adjust pain medications throughout the day. If tolerates clears can be advanced to a low-fat diet. Okay
for discharge from surgical perspective when tolerating a diet and pain controlled with ambulation.
-- Cont LFD
-- Pain control: Tylenol, Toradol, Tramadol
-- HLIV
-- OOB/ambulate
-- DVT: SQH
-- OK for DC from surgery standpoint
Subjective Data
-
Date of Service: March 11, 2025
AFVSS, pain controlled, ambulating, isa PO
Objective Data
-
Intake and Output
03/10/25 03/11/25 03/12/25
06:59 06:59 06:59
Intake Total 125 / 125 1500 / 1500
Output Total 750 / 750
Balance -625 / -625 1500 / 1500
Intake:
Oral fluids 600 / 600
IV fluids (Total) 125 / 125 900 / 900
Normosol 125 / 125
Output:
Urine, Voided 750 / 750
Other:
Number of approximated MODERATE 3 4
amounts of urine
Number of approximated LARGE 2 2
amounts of urine
Vital Signs
Temp Pulse Resp BP Pulse Ox
98.1 F 73 18 110/73 97
03/11/25 08:12 03/11/25 08:12 03/11/25 08:12 03/11/25 08:12 03/11/25 08:12
Lab Results
03/10/25 06:46
03/10/25 06:46
Calcium 9.3 mg/dl (8.4-10.2) 03/10/25 06:46
Total Bilirubin Cancelled 03/11/25 06:45
Direct Bilirubin Cancelled 03/11/25 06:45
AST Cancelled 03/11/25 06:45
ALT Cancelled 03/11/25 06:45
Alkaline Phosphatase Cancelled 03/11/25 06:45
Total Protein Cancelled 03/11/25 06:45
Albumin Cancelled 03/11/25 06:45
Physical Exam
-
Gen: NAd
Abd: soft, approp ttp, incisions cdi with glue
Patient has a sethi catheter: No
Patient has a central line: No
[2025-03-11 09:30] LABS: ALT (SGPT) 58 U/L (0-35); AST (SGOT) 39 U/L (14-36); Albumin 4.0 g/dl (3.5-5.0); Alkaline Phosphatase 96 U/L (38-126); Total Protein 6.7 g/dl (6.3-8.2)
--- NOTE | 2025-03-11 09:49 | W.PN.HOSP.TC ---
Today's Communication/Plan
-
DC
Assessment / Plan
Assessment / Plan
34yo F with no PMHx came with 2 days of postprandial pain found pancreatitis, most likely /2 gallstones. S/P cholecystectomy on 03/09/25 developed worsened abd pain next day
A/P:
#Acute gallstone pancreatitis
#Transaminitis
denied alcohol
Ca WNL
triglicerides not significantly elevated
advance diet as tolerated
GI consult
hepatitis panel neg
GEnSx consult s/p cholecystectomy
DVT ppx lovenox
Full code
I have spent at least 51min reviewing chart, test results, communication with consultants and providing direct patient care
Anticipated Discharge: Today
Subjective/Interval History
-
Date of Service: March 11, 2025
Objective Data
-
Labs:
Laboratory Results
03/11/25 03/11/25
06:45 08:13
Total Bilirubin Cancelled 0.9
AST Cancelled 39 H
ALT Cancelled 58 H
Alkaline Phosphatase Cancelled 96
Vital Signs:
Vital Signs
Temp Pulse Resp BP Pulse Ox
98.1 F 73 18 110/73 97
03/11/25 08:12 03/11/25 08:12 03/11/25 08:12 03/11/25 08:12 03/11/25 08:12
I&O
03/10/25 03/11/25 03/12/25
06:59 06:59 06:59
Intake Total 125 / 125 1500 / 1500
Output Total 750 / 750
Balance -625 / -625 1500 / 1500
Review of Systems
-
History Source: Patient
All other systems: Reviewed and negative
Physical Exam
-
General: No Apparent Distress
HEENT: Normocephalic
Respiratory: Clear to Auscultation
GI: Soft, Nontender and Nondistended
Neuro: Awake, Alert, Oriented and AO x 3
Psych: Calm
--- NOTE | 2025-03-11 09:52 | W.DCSUMMARY ---
Discharge Summary
Discharge Data
Date of Admission: 03/07/25
Date of Discharge: 03/11/25
-
Pending Results: No
Hospital Course
34yo F with no PMHx came with 2 days of postprandial pain found pancreatitis, most likely /2 gallstones. S/P cholecystectomy on 03/09/25 developed worsened abd pain next day that later subsided. Tolerating solid food and medically stable to be d/c
home. Used Tramadol only once 24h before d/c - reasonable to dc with recommendations to use tylenol at home
I have spent at least 51min reviewing chart, test results, communication with consultants and providing direct patient care
Patient was managed for:
#Acute gallstone pancreatitis
#Transaminitis
Discharge Plan
-
Patient Disposition: Home (Routine Discharge)
Discharge Diagnosis/Procedures: Gallstone pancreatitis. Laparoscopic cholecystectomy with cholangiogram.
Condition: Good
Diet: No restrictions
Activity: No strenuous activity
Driving Restrictions: As prior to admission
Bathing Restrictions: OK to Shower
Activity Restrictions/Additional Instructions:
Instructions following Laparoscopic Cholecystectomy
Please call [phone] if you have any questions or concerns after your surgery.
Wound Care:
Your incisions are covered with skin glue which will come off on its own in 5-10 days.
It is ok to shower the day after your surgery. Do not scrub the incisions, let soap and water wash over them and pat dry.
� Bruising around your incisions is normal.
� Using ice packs will help minimize this swelling.
� No swimming or soaking incisions for 1 week.
� Your stitches will dissolve and do not need to be removed.
Urinary retention:
If you are unable to urinate 6-8 hours after your surgery, please call [phone] to discuss further management.
Activity:
No heavy lifting more than 15 pounds for the next 3 weeks, then you may gradually lift heavier objects as tolerated by discomfort. Otherwise activity as tolerated by your comfort level.
Pain Management:
� You may take 650 milligrams of Tylenol (Max 3 grams per day) every 6 hours.
� You may take 600 milligrams of ibuprofen also every 6 hours. (you can alternate them every 3 hours)
� You may use an ice pack to your incision as needed.
� If you still have pain not controlled by these measures, take your prescription pain medication as prescribed.
Medications:
You may resume your home medications.
Bowel Medications:
Prescription pain medication can make you constipated. If you take this medication, also take colace 100 mg twice daily (this is over the counter). If this is not sufficient, you may take Miralax (polyethylene glycol) to help move your bowels.
Diet:
After your procedure, there are no dietary restrictions. However, you may notice some loose stools with fatty meals for up to 4 weeks after surgery. If this is the case, please adjust to a low fat diet as needed.
Driving restrictions:
No driving if you are taking prescription pain medication or if you think your normal reaction time and attentiveness has been slowed by your surgery.
Things to Look out for:
Worsening Abdominal pain, fever, jaundice, redness or drainage from incision
Call Doctor for:
Please call if you notice worsening redness or drainage from incision(s) lasting longer than 5 days after your surgery, any foul-smelling drainage from the incision, pain not controlled by pain medications, persistent nausea and vomiting, or for any
fevers greater than 101.3 F. The number for questions/concerns is [phone]
Follow-up:
A follow-up appointment will be scheduled with your surgeon in 3-4 weeks. Please call prior to your appointment if you have any questions or concerns. [phone]
Referrals:
Lester Peralta MD [Active, Surgical]
UNKNOWN - PT DOES,NOT KNOW [Family Provider]
Additional Discharge Medication Instructions: Use Tylenol for pain as needed
Discharge Orders:
Discharge Patient (As Directed); Ordered 03/11/25
Ordered By: Kaz Feldman
Discharge Date and Time
Print Language: SLOVENIAN
--- NOTE | 2025-03-11 17:03 | CM ---
DC home with no needs today. Sister transporting pt home
== END 2025-03-11 11:33 | disposition home or self-care (01) | DRG 417 ==
LOC: 4 EAST ACU 23:13
PROVIDERS: Physician Assistant; Radiology Vascular & Interventional Radiology; Surgery; ADMITTING PHYSICIAN Internal Medicine; ATTENDING PHYSICIAN Internal Medicine; CONSULT PHYSICIAN Internal Medicine Gastroenterology; CONSULT PHYSICIAN Surgery; EMERGENCY PHYSICIAN Emergency Medicine
PROC: BF131ZZ Fluoroscopy of Gallbladder and Bile Ducts using Low Osmolar Contrast (ICD-10-PCS; 2025-03-09)
PROC: 0FT44ZZ Resection of Gallbladder, Percutaneous Endoscopic Approach (ICD-10-PCS; 2025-03-09)
DX: K80.20 Calculus of gallbladder without cholecystitis without obstruction (principal); K85.10 Biliary acute pancreatitis without necrosis or infection; R74.01 Elevation of levels of liver transaminase levels
CPT/HCPCS: 74300; 76000; 76700; 80053; 80061; 80076; 82550; 83690; 84703; 85025; 85027; 86704; 86706; 86803; 87340; 88304; 93005; 96361; 96374; 96375; 99285; A4300